=== PATIENT | male | born 2000 | race Caucasian/White ===

== ENCOUNTER 2019-01-26 16:51 | Emergency (ER) | payer MEDICAID, SELFPAY ==
[2019-01-26] VITALS (18 sets, daily range): BP systolic 104–159; BP diastolic 59–93; PULSE 63–90; RESP 11–25; TEMP 36.8; O2SAT 95–98
--- NOTE | 2019-01-26 17:18 | ED.GENADUL_ITS ---
Discharge Plan Disposition Patient Disposition: HOME Condition: Stable Discharge Details Chief Complaint: OD/Poison Clinical Impression: Opiate abuse, continuous Primary Care Provider: Smooth Brice ED Provider: Storm Florence Home Meds and New Rx's Prescriptions: No Action bupropion HCl [Wellbutrin XL] 150 MG tablet extended release 24 hr 150 mg PO DAILY Qty: 30 RF: 0 oxycodone-acetaminophen [Percocet] 10-325 mg Tablet 1 tab PO TID PRNRF: 0 Discharge Instructions Instructions: Narcotic Abuse (ED) Additional Instructions: Your seen today by recovery collector and provided follow-up opportunities please consider rehab medication therapy and counseling for your opiate addiction. You were provided a prescription for naloxone today should you or someone you know overdose on opiate this can be a life-saving medication as we reviewed. Please return to the emergency department if you develop respiratory distress or other concerns Referrals: Smooth Brice MD [Primary Care Provider] - Medical Decision Making 18-year-old male history of opiate abuse with reported lethargy and question of respiratory depression unseen after taking Percocet or an unknown opiate. Patient conscious alert and oriented in the emergency department with no evidence of respiratory depression moderate in the emergency department for 2 hours seen by recovery collector and offered resources and he will follow-up for the next few days patient provided with a prescription for naloxone and agrees to strict return to emergency department precautions. HPI 18-year-old male past medical history of snorting heroin taking Percocet reports that he took a friend's Percocet versus other unknown pill and then was reported to become sleepy and drowsy unclear if there wasany episode of apnea or respiratory arrest. Patient was not given naloxone prehospital according to patient and EMS . Patient history of opioid use denies IV drug abuse and is looking at rehab options possibly methadone and is interested in talking to [facility] patient no other complaints denies trauma no shortness of breath chest pain nausea vomiting diarrhea weight loss weight gain symptoms are acute nonradiating continuous General Date/Time Provider Initiated Documentation: 01/26/19 17:14 . Related Data Home Medications Medication Instructions Recorded Confirmed bupropion HCl [Wellbutrin Xl] 150 mg PO DAILY #30 tab-cap 01/26/18 01/26/19 oxycodone-acetaminophen [Percocet] 1 tab PO TID PRN 01/26/19 01/26/19 Previous Rx's Medication Instructions Recorded bupropion HCl [Wellbutrin Xl] 150 mg PO DAILY #30 tab-cap 01/26/18 Allergies Allergy/AdvReac Type Severity Reaction Status Date / Time No Known Allergies Allergy Unverified 12/15/17 13:41 General Stated Complaint: OD/Poison JOCELINE: 3 Review of Systems Review of Systems All systems reviewed & are unremarkable except as noted in HPI and below PFSH Medical History Marijuana abuse Tear of meniscus of left knee Surgical History Fracture, Open Treatment Hardware Removal Meniscectomy (06/29/16) Tonsillectomy and adenoidectomy Tonsillectomy and adenoidectomy Family History Mother Hyperlipidemia Father Essential hypertension Hyperlipidemia Neoplasm Social History Smoking/Tobacco Use Status: Never Alcohol Intake: current Alcohol Intake frequency: a few times a month Drug use: Never Substance use type: marijuana Details: 3.5 grams of marijuana a day. Snorts Heroine as well. Do you feel safe at home: Yes Do you feel safe in your relationship?: Yes Exam Narrative Exam Narrative: Pulse oximetry reviewed by me and is normal [] Constitutional: Pt is in no acute distress. he is well appearing. he oriented to person, place, and time. Eyes: conjunctivae are normal. Pupils are equal, round, and reactive to light. No scleral icterus. extraocular muscles are intact Ears/Nose/Mouth/Throat: mucus membranes are moist. Musculoskeletal: neck is supple. normal range of motion in all extremities. Cardiovascular: Normal rate and rhythm. No lower extremity edema [RRR] Respiratory: effort is normal . pt exhibits no stridor or respiratory distress. [L CTA] GastrointestinaI: abdomen soft, +BS, nontender, -rebound, -guarding. Neurological: alert and oriented to person, place, and time. he has normal strength, no tremor. Skin: Skin is warm and dry. he is not diaphoretic. Distal perfusion in tact, warm extremities, cap refill ? 2 seconds. Hem/Lymph/Imm: No cervical LAD, no goiter, no conjunctival pallor Psych: normal mood and affect. behavior is normal Triage and nurse notes reviewed.[] Course Vital Signs Temperature 36.8 C 01/26/19 16:52 Pulse 90 01/26/19 16:52 Respiratory Rate 18 01/26/19 16:52 Blood Pressure 159/93 H 01/26/19 16:52 Pulse Oximetry 96 01/26/19 16:52 Temperature 36.8 C 01/26/19 16:52 Temperature Source Temporal Artery Scan 01/26/19 16:52 Pulse 90 01/26/19 16:52 Respiratory Rate 12 01/26/19 16:58 Respiratory Effort 01/26/19 16:58 Respiratory Depth Normal 01/26/19 16:58 Respiratory Pattern Normal 01/26/19 16:58 Blood Pressure 159/93 H 01/26/19 16:52 Blood Pressure Position Sitting 01/26/19 16:52 Pulse Oximetry 96 01/26/19 16:52 Oxygen Delivery Method Room Air 01/26/19 16:52 Oxygen Flow Rate 0 01/26/19 16:52
== END 2019-01-26 18:31 | disposition home or self-care (01) ==
PROVIDERS: Emergency Provider Emergency Medicine; PCP Pediatrics
DX: T40.2X1A Poisoning by other opioids, accidental (unintentional), initial encounter (principal); F11.20 Opioid dependence, uncomplicated; R53.83 Other fatigue
CPT/HCPCS: 99284

== ENCOUNTER 2019-08-21 18:34 | Emergency (ER) | payer MEDICAID, SELFPAY ==
[2019-08-21 18:40] VITALS: BP 146/72; PULSE 93; RESP 16; TEMP 36; O2SAT 95
--- NOTE | 2019-08-21 18:45 | W.ED.GENAD ---
Discharge Plan Disposition Patient Disposition: HOME Condition: Good Discharge Details Chief Complaint: Nausea/Vomit/Diar Clinical Impression: Vomiting Primary Care Provider: Smooth Brice ED Provider: Linda Velazco Home Meds and New Rx's Prescriptions: New promethazine 25 mg tablet 25 mg PO Q6H PRN (Reason: nausea and vomiting) Qty: 10 RF: 0 Continued methadone 10 mg/mL Concentrate 85 mg PO DAILY RF: 0 Discharge Instructions Instructions: Acute Nausea and Vomiting (ED) Additional Instructions: Continue to encourage hydration. He may advance diet as tolerated. Acute increase in vomiting is likely associated with the food you had this morning. However, I am concerned that your weekly episodes of vomiting may be associated with your daily marijuana use. Please consider cutting back. Please discuss this further with your primary care. If you develop fever/chills, abdominal pain, inability stay hydrated or other new/worsening symptoms seek care urgently once again. If your nausea vomiting recurs, you may take the Phenergan as prescribed. Stand Alone Forms: Work Release Referrals: Smooth Brice MD [Primary Care Provider] - Medical Decision Making Patient 18-year-old male presented with acute emesis nausea and vomiting today. Denies any diarrhea. Reports began after eating a [employer] breakfast burrito. Since subsided and he is feeling improved. Endorses feeling hungry at this time and feels that he would be able to tolerate this well. Is currently drinking fluids. No previous abdominal surgeries. Denies of fevers or chills. Denies any back pain. No chest pain, shortness of breath. States he had 4 episodes of emesis but has been able to hydrate throughout the course of the day. No recent travel. No known sick contacts. Patient does report that he has had issues with vomiting historically that typically is alleviated with hot showers. Patient does smoke marijuana multiple times a day. Presents today as he had to miss work and is requesting work note. I did discuss cannabinoid use hyperemesis and advised that he try to cut back on his marijuana usage. However, today's episode may also have been linked to his unusual food intake this morning. On exam, patient is resting comfortably. He is no abdominal tenderness. Normal bowel sounds. He appears nontoxic. He appears well-hydrated. I feel it emergent intervention is warranted at this time particularly as he feels improved and is requesting food. Plan to p.o. challenge the patient. Patient is eating and drinking without any complaints. Will prescribe antiemetic in case symptoms come back. However, advised that he try to cut back on marijuana usage and follow-up closely with his primary care physician. Work note was given at patient's request. He was given return precautions. All his questions and concerns were addressed and is agreement this plan. HPI General Mode of arrival: ambulatory. Date/Time Provider Initiated Documentation: 08/21/19 18:45. Limitations to Documentation: no limitations. Information obtained by: patient and RN notes reviewed. HPI Narrative: Patient is a 18-year-old male with history of daily marijuana use, currently receiving daily methadone, with chief complaint of nausea vomiting. Reports that he had a burrito at [facility] this morning and since that time, has had 4 episodes of emesis. Denies any abdominal pain. Over, had noted some cramping earlier today. Is now drinking you tolerating this well. Has not had any nausea in the past few hours and feels overall improved. Reports that he did have to miss work secondary to his symptoms and is requesting a work note. Denies any fevers or chills. No diarrhea. No change in bowel habits. Denies any dysuria hematuria or other change in urinary habits. No hematemesis. No previous abdominal surgeries. Related Data Home Medications Medication Instructions Recorded Confirmed methadone 85 mg PO DAILY 08/21/19 08/21/19 promethazine 25 mg PO Q6H PRN #10 tab 08/21/19 Previous Rx's Medication Instructions Recorded promethazine 25 mg PO Q6H PRN #10 tab 08/21/19 Allergies Allergy/AdvReac Type Severity Reaction Status Date / Time No Known Allergies Allergy Unverified 08/21/19 18:42 General Stated Complaint: Nausea/Vomit/Diar JOCELINE: 3 Review of Systems Constitutional Constitutional: Reports as per HPI, Denies chills, Denies fatigue, Denies fever(s) and Denies headache(s) ENT Ears, Nose, Mouth, and Throat: Denies headache(s) Cardiovascular Cardiovascular: Reports as per HPI, Denies chest pain and Denies dyspnea Respiratory Respiratory: Reports as per HPI, Denies cough and Denies dyspnea Gastrointestinal Gastrointestinal: Reports as per HPI Genitourinary Genitourinary: Denies system reviewed and no additional complaints, except as docu (patient denies any change in urinary habits) Musculoskeletal Musculoskeletal: Reports as per HPI and Denies back pain Integumentary/Breasts Skin/Breast: Reports as per HPI and Denies rash Neurologic Neurologic: Reports as per HPI and Denies headache(s) Endocrine Endocrine: Denies fatigue [facility] Medical History Marijuana abuse [facility] [place] [facility] 11/05 Tear of meniscus of left knee Surgical History (Updated 07/04/18 @ 14:36 by Ofuz [place]) Fracture, Open Treatment ORIF triplane fracture left ankle done in 07/23/12; distal humerus fracture. Hardware Removal right elbow and left ankle on 12/03/12 Meniscectomy (06/29/16) partial meniscectomy, chondroplasty, microfracture r knee Tonsillectomy and adenoidectomy Tonsillectomy and adenoidectomy Family History Mother Hyperlipidemia Father Essential hypertension Hyperlipidemia Neoplasm Social History Smoking/Tobacco Use Status: Never Alcohol Intake: current Alcohol Intake frequency: a few times a month Drug use: Daily Substance use type: marijuana Details: 3.5 grams of marijuana a day. Snorts Heroine as well. s Do you feel safe at home: Yes Do you feel safe in your relationship?: Yes Exam Const General: cooperative, healthy appearing, comfortable, no acute distress and well developed Nutritional Appearance: average body habitus and well nourished Orientation: alert and awake [facility] Head: normal to inspection Mouth: moist mucous membranes Resp Effort & Inspection: normal respiratory effort, able to speak in complete sentences and no respiratory distress Auscultation: clear to auscultation bilaterally, no rales, no rhonchi and no wheezes Cardio Rate: regular rate Rhythm: regular rhythm Heart Sounds: S1 normal and S2 normal GI Inspection: normal to inspection, no edema and non-distended Palpation: soft, no hepatosplenomegaly, not firm, no guarding, no masses, not rigid and nontender Percussion: normal to percussion Auscultation: normal bowel sounds Back/Spine/Pelvis Back: no CVA tenderness Skin General skin exam: no rashes or lesions noted Trauma: no lacerations or abrasions Neuro General: alert and awake Cognition: normal cognition Speech: speech normal Gait: normal gait Psych Appearance: grossly normal and well kempt Mental Status: mental status grossly normal Speech and Movement: speech and movement normal Course Vital Signs Vital signs: Vital Signs Temperature 36 C L 08/21/19 18:40 Pulse 93 H 08/21/19 18:40 Respiratory Rate 16 08/21/19 18:40 Blood Pressure 146/72 H 08/21/19 18:40 Pulse Oximetry 95 08/21/19 18:40 Temperature 36 C L 08/21/19 18:40 Temperature Source Skin 08/21/19 18:40 Pulse 93 H 08/21/19 18:40 Respiratory Rate 16 08/21/19 18:40 Respiratory Effort Non-Labored 08/21/19 18:40 Blood Pressure 146/72 H 08/21/19 18:40 Blood Pressure Position Sitting 08/21/19 18:40 Pulse Oximetry 95 08/21/19 18:40 Oxygen Delivery Method Room Air 08/21/19 18:40 Oxygen Flow Rate 0 08/21/19 18:40 Pain Level 4 08/21/19 18:40
== END 2019-08-21 19:15 | disposition home or self-care (01) ==
PROVIDERS: Emergency Provider Physician Assistant; PCP Pediatrics
DX: R11.2 Nausea with vomiting, unspecified (principal); F12.10 Cannabis abuse, uncomplicated
CPT/HCPCS: 99283

== ENCOUNTER 2021-07-01 06:57 | Emergency (ER) | payer MEDICAID, SELFPAY ==
[2021-07-01 07:03] VITALS: BP 141/79; PULSE 50; TEMP 36.4; O2SAT 98
--- NOTE | 2021-07-01 07:07 | ED.GENADUL_ITS ---
Discharge Plan Disposition Patient Disposition: HOME Condition: Good Discharge Details Clinical Impression: Impetigo Primary Care Provider: Smooth Brice ED Provider: Aron Reich Home Meds and New Rx's Prescriptions: New mupirocin 2 % ointment 1 applic topical TID Qty: 15 RF: 0 cephalexin 250 mg tablet 250 mg PO QID 7 Days Qty: 28 RF: 0 Continued methadone 10 mg/mL Concentrate 85 mg PO DAILY RF: 0 promethazine 25 mg tablet 25 mg PO Q6H PRN (Reason: nausea and vomiting) Qty: 10 RF: 0 Discharge Instructions Instructions: Impetigo (ED) Additional Instructions: At this time you have a mild skin infection called impetigo which is a bacterial infection of your skin. Please apply the mupirocin ointment 3 times daily until your symptoms resolve. If you do not notice any improvement with the ointment after 2 to 3 days please start taking the oral antibiotic Keflex and. If you notice any worsening of your symptoms, or any new symptoms such as vomiting, diarrhea, fever, chills, shortness of breath, chest pain, numbness, weakness, or fainting , please return immediately to the emergency department for reevaluation. Please follow up with your primary care provider as soon as possible for reassessment and reevaluation. As always, it was a pleasure participating in your medical care today. Referrals: Smooth Brice MD [Primary Care Provider] - Medical Decision Making This is a pleasant 20-year-old male with a past medical history of impetigo who presents today for evaluation of rash on his left forehead. He was concerned it was shingles. He denies any burning or itching. He denies any fever or chills. No other complaints at this time. No history of trauma. Physical exam demonstrates 2 small erythematous lesions on the scalp, with a honey crusted scab over top. Symptoms consistent with mild impetigo. Clinically inconsistent with shingles. No current clinical evidence of staph scalded skin syndrome, erythema multiforme, erythema migrans, toxic epidermal necrolysis, Eddy-Blane syndrome, Kawasaki-like rash, meningococcemia, pemphigus vulgaris, or necrotizing fasciitis. We will give mupirocin ointment for home use, and a prescription for Keflex to use if the symptoms do not improve over 36 hours with the topical mupirocin. Discussed red flags which to return. I have extensively reviewed the treatment plan and discharge instructions with the patient. I have addressed all patient concerns at this time. The patient was made aware of what symptoms to monitor for that would warrant a return to the emergency department. Discussed the plan with the patient, they demonstrate verbal understanding and agreement with our assessment and plan at this time. The documentation in this chart was dictated using [employer] dictation software. Please excuse any dictation errors. HPI General Date/Time Provider Initiated Documentation: 07/01/21 07:07 . HPI Narrative: This is a pleasant 20-year-old male with a past medical history of impetigo who presents today for evaluation of rash on his left forehead. He was concerned it was shingles. He denies any burning or itching. He denies any fever or chills. No other complaints at this time. No history of trauma. Related Data Home Medications Medication Instructions Recorded Confirmed methadone 85 mg PO DAILY 08/21/19 07/01/21 promethazine 25 mg PO Q6H PRN #10 tab 08/21/19 cephalexin 250 mg PO QID 7 Days #28 tab 07/01/21 mupirocin 1 applic TOPICAL TID #15 g 07/01/21 Previous Rx's Medication Instructions Recorded promethazine 25 mg PO Q6H PRN #10 tab 08/21/19 cephalexin 250 mg PO QID 7 Days #28 tab 07/01/21 mupirocin 1 applic TOPICAL TID #15 g 07/01/21 Allergies Allergy/AdvReac Type Severity Reaction Status Date / Time No Known Allergies Allergy Unverified 07/01/21 07:07 General Stated Complaint: RashLesion JOCELINE: 4 Review of Systems All systems reviewed & are unremarkable except as noted in HPI and below [facility] Medical History Marijuana abuse [facility] [place] [facility] 11/05 Tear of meniscus of left knee Surgical History Fracture, Open Treatment ORIF triplane fracture left ankle done in 07/23/12; distal humerus fracture. Hardware Removal right elbow and left ankle on 12/03/12 Meniscectomy (06/29/16) partial meniscectomy, chondroplasty, microfracture r knee Tonsillectomy and adenoidectomy Tonsillectomy and adenoidectomy Family History Mother Hyperlipidemia Father Essential hypertension Hyperlipidemia Neoplasm Social History Smoking/Tobacco Use Status: Current every day Tobacco Type: cigarettes Smoking risk assessment performed?: Yes Alcohol Intake: current Alcohol Intake frequency: holidays/special occasions only Drug use: Current Sobriety Substance use type: marijuana Details: 3.5 grams of marijuana a day. s Do you feel safe at home: Yes Do you feel safe in your relationship?: Yes Exam Narrative Exam Narrative: 1.Const: Well-nourished, Well-developed, appearing stated age 2.Eyes: PERRL, no conjunctival injection, and symmetrical lids. 3.ENT: Atraumatic external nose and ears. Moist MM. Neck: Symmetric, trachea midline, No thyromegaly. 4.CVS: +S1/S2, No murmurs or gallops. Peripheral pulses 2+ and equal in all extremities. Brisk capillary refill in all extremities. 5.RESP: Unlabored respiratory effort. Clear to auscultation bilaterally. No wheezes rales or rhonchi 6.GI: Soft, Nontender/Nondistended, No hepatosplenomegaly. No guarding or rebound. 7.MSK: Normocephalic/Atraumatic, Extremities w/o deformity or ttp No cyanosis or clubbing, Normal movement of all extremities 8.Skin: Patient demonstrates 2 small lesions on the left frontal upper scalp, consistent with impetigo. Small amount of erythema surrounding them, with a honeydew crusted lesion over it. Negative Nikolsky sign. No large vesicles or bulla. No palpable purpura. No oral lesions. No mucosal lesions. No evidence of severe cellulitis. No evidence of vaccine preventable rash. 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 Sensation grossly intact, no focal neurologic deficits. 10.Psych: (AAO) x3. Appropriate mood and affect Course Vital Signs Vital signs: Vital Signs Temperature 36.4 C L 07/01/21 07:03 Pulse 50 L 07/01/21 07:03 Blood Pressure 141/79 H 07/01/21 07:03 Pulse Oximetry 98 07/01/21 07:03 Temperature 36.4 C L 07/01/21 07:03 Temperature Source Temporal Artery Scan 07/01/21 07:03 Pulse 50 L 07/01/21 07:03 Blood Pressure 141/79 H 07/01/21 07:03 Blood Pressure Position Sitting 07/01/21 07:03 Pulse Oximetry 98 07/01/21 07:03 Oxygen Delivery Method Room Air 07/01/21 07:03 Oxygen Flow Rate 0 07/01/21 07:03
== END 2021-07-01 07:20 | disposition home or self-care (01) ==
PROVIDERS: Emergency Provider Student in an Organized Health Care Education/Training Program; PCP Pediatrics
DX: L01.00 Impetigo, unspecified (principal); B96.89 Other specified bacterial agents as the cause of diseases classified elsewhere
CPT/HCPCS: 99283

== ENCOUNTER 2021-09-29 14:04 | Emergency (ER) | payer MEDICAID, SELFPAY ==
[2021-09-29 14:07] VITALS: BP 126/73; PULSE 52; RESP 14; TEMP 36.5; O2SAT 98
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
[2021-09-29] MEDS: Bacitracin 30 GM TUBE TP (15:38)
== END 2021-09-29 15:37 | disposition home or self-care (01) ==
PROVIDERS: Emergency Provider Student in an Organized Health Care Education/Training Program
DX: T20.22XA Burn of second degree of lip(s), initial encounter (principal); T20.26XA Burn of second degree of forehead and cheek, initial encounter; T20.27XA Burn of second degree of neck, initial encounter; T22.151A Burn of first degree of right shoulder, initial encounter; X12.XXXA Contact with other hot fluids, initial encounter; Y99.0 Civilian activity done for income or pay
CPT/HCPCS: 99282; 99283

== ENCOUNTER 2021-10-05 07:50 | Emergency (ER) | payer SELFPAY ==
[2021-10-05 07:55] VITALS: BP 133/94; PULSE 62; RESP 16; TEMP 36.3; O2SAT 100
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
== END 2021-10-05 08:21 | disposition home or self-care (01) ==
PROVIDERS: Emergency Provider Registered Nurse Emergency
DX: T20.2 Burn of second degree of head, face, and neck (principal); T20.26XD Burn of second degree of forehead and cheek, subsequent encounter; T20.27XD Burn of second degree of neck, subsequent encounter; T22.1 Burn of first degree of shoulder and upper limb, except wrist and hand; X12.XXXD Contact with other hot fluids, subsequent encounter; Y99.0 Civilian activity done for income or pay
CPT/HCPCS: 99281

== ENCOUNTER 2022-10-08 05:48 | Emergency (ER) | payer MEDICAID, SELFPAY ==
--- NOTE | 2022-10-08 05:53 | ED.GENADUL_ITS ---
Discharge Plan Disposition Patient Disposition: Home Condition: Stable Discharge Details Clinical Impression: Infected dental caries Primary Care Provider: Aron Ross ED Provider: Sarah Rowe Home Meds and New Rx's Prescriptions: New amoxicillin-pot clavulanate 875-125 mg tablet 1 tab PO BID 7 Days Qty: 14 0RF ibuprofen 600 mg tablet 600 mg PO Q6H PRNQty: 20 0RF Continued methadone 10 mg/mL Concentrate 115 mg PO DAILY Discharge Instructions Instructions: Dental Caries (ED) Additional Instructions: Drink plenty of fluids and get plenty of rest. Take Tylenol every 4 hours as needed and directed for pain. Do not take more than 3000 mg of Tylenol in 24 hours. Prescriptions for the antibiotic Augmentin and the pain reliever ibuprofen have been sent electronically to your pharmacy. Follow-up with your scheduled dentist appointment next week. Return immediately to the emergency department if you develop any worsening or new concerning symptoms. Discharge Data Discharge Date/Time-TO BE ENTERED AT DEPARTURE: 10/08/22 06:46 Discharge Physician: Sarah Rowe Medical Decision Making 22-year-old male on methadone presents for left lower dental pain for the past 3 weeks. Recently finished amoxicillin and Flagyl with temporary relief and then symptoms returned. Patient has dental caries and missing teeth. Tooth #19 or 20 has a portion missing on the posterior aspect and is tender to palpation with dental caries. There is no dental abscess noted. No drooling, trismus or submandibular swelling. Patient initially offered dental block and declined but then was agreeable. He was given a dose of ibuprofen and Augmentin here and prescriptio ns sent electronically to his pharmacy. Dental block performed at bedside with significant improvement of pain. Advised to follow-up with his scheduled appointment with Dr. Vital this week for dental extraction. Usual and customary return precautions given prior to discharge. Medical Records Medical records reviewed: Yes I reviewed the patient's medical records. HPI General Mode of arrival: ambulatory . Date/Time Provider Initiated Documentation: 10/08/22 05:53 . Limitations to Documentation: no limitations . Information obtained by: patient . HPI Narrative: Patient is a 22-year-old male who presents with left lower dental pain for the past 3 weeks. Patient states he saw his dentist Dr. Vital for this pain and was prescribed amoxicillin and Flagyl which he recently finished. He states it temporarily helped his symptoms but then pain returned after he finished the antibiotics. Patient states he has an appointment with Dr. Vital next week for dental extraction of this tooth. Patient denies any fever. Patient states he has been taking Tylenol without relief. Patient is on methadone. Patient states he has not taken any ibuprofen. Related Data Home Medications Medication Instructions Recorded Confirmed methadone 10 mg/mL oral concentrate 115 mg PO DAILY 08/21/19 10/08/22 amoxicillin 875 mg-potassium 1 tab PO BID 7 days #14 tabs 10/08/22 clavulanate 125 mg tablet ibuprofen 600 mg tablet 600 mg PO Q6H PRN #20 tabs 10/08/22 Previous Rx's Medication Instructions Recorded amoxicillin 875 mg-potassium 1 tab PO BID 7 days #14 tabs 10/08/22 clavulanate 125 mg tablet ibuprofen 600 mg tablet 600 mg PO Q6H PRN #20 tabs 10/08/22 Allergies Allergy/AdvReac Type Severity Reaction Status Date / Time No Known Allergies Allergy Unverified 10/08/22 05:57 General Stated Complaint: DentalOral JOCELINE: 5 Review of Systems All systems reviewed & are unremarkable except as noted in HPI and below Constitutional Constitutional: Reports as per HPI, Denies chills and Denies fever(s) Eyes Eyes: Denies blurry vision ENT Ears, Nose, Mouth, and Throat: Reports dental pain, Denies dizziness, Denies sore throat and Denies throat swelling Cardiovascular Cardiovascular: Denies chest pain and Denies dyspnea Respiratory Respiratory: Denies cough and Denies dyspnea Gastrointestinal Gastrointestinal: Denies abdominal pain, Denies diarrhea and Denies vomiting Genitourinary Genitourinary: Denies hematuria and Denies dysuria Musculoskeletal Musculoskeletal: Denies back pain and Denies numbness Integumentary/Breasts Skin/Breast: Denies lesions and Denies rash Neurologic Neurologic: Denies dizziness, Denies localized weakness and Denies numbness Allergic/Immunologic Allergic/Immunologic: Denies throat swelling PFSH All Active Problems (Updated 10/08/22 @ 06:07 by Sarah Rowe DO) Impetigo (Acute) Infected dental caries (Acute) Medical History Marijuana abuse [facility] 11/05 Tear of meniscus of left knee Surgical History Fracture, Open Treatment ORIF triplane fracture left ankle done in 07/23/12; distal humerus fracture. Hardware Removal right elbow and left ankle on 12/03/12 Meniscectomy (06/29/16) partial meniscectomy, chondroplasty, microfracture r knee Tonsillectomy and adenoidectomy Tonsillectomy and adenoidectomy Family History Mother Hyperlipidemia Father Essential hypertension Hyperlipidemia Neoplasm Social History Smoking/Tobacco Use Status: Current every day Tobacco Type: cigarettes Smoking risk assessment performed?: Yes Alcohol Intake: current Alcohol Intake frequency: holidays/special occasions only Drug use: Occasionally Substance use type: marijuana Do you feel safe at home: Yes Do you feel safe in your relationship?: Yes Exam Const General: cooperative, healthy appearing and no acute distress HENMT Head: normal to inspection Ears: hearing grossly normal bilaterally, external ears normal and TM's normal bilaterally General nose exam: external nose normal Face and sinus: normal facial exam Mouth: oral mucosae normal, no drooling and no trismus Teeth image: 1. Missing teeth. Tooth #19 or 20 is the location of pain. There is a chip to the posterior aspect of this tooth. There is dental caries throughout. Throat: posterior oropharynx normal Eyes General: appearance normal, both eyes and all related structures Neck Neck: normal visual inspection, no lymphadenopathy, no meningeal signs, trachea midline, supple, no anterior neck swelling and No submandibular swelling Resp Effort & Inspection: normal respiratory effort and able to speak in complete sentences Cardio Rate: regular rate Skin General skin exam: no rashes or lesions noted Neuro General: patient alert, patient awake and patient oriented x3 Motor: muscle tone normal throughout Extrem General: normal to inspection and full ROM Psych Appearance: grossly normal Affect: normal affect Procedures Nerve Block Nerve Block 1: Time out performed: Yes Local Anesthetic: Lidocaine 1% and Bupivicaine 0.5% Amount of anesthesia used (mL): 3 Side: left Intraoral Nerve Block: inferior alveolar Procedure Successful: Yes Patient Tolerated Procedure: well Complications: bleeding (minimal, at site, ~ 0.3cc)
[2022-10-08 05:54] VITALS: BP 175/108; PULSE 63; RESP 16; TEMP 37; O2SAT 100
[2022-10-08] MEDS: Amoxicillin 875/Clav. 125 TAB PO (06:12)
[2022-10-08] MEDS: Ibuprofen 600 MG TAB PO (06:12)
[2022-10-08 06:47] VITALS: BP 151/106
== END 2022-10-08 06:46 | disposition home or self-care (01) ==
PROVIDERS: Emergency Provider Physician Assistant; PCP Pediatrics
DX: K04.7 Periapical abscess without sinus (principal); K02.9 Dental caries, unspecified
CPT/HCPCS: 64400

== ENCOUNTER 2023-03-05 13:03 | Emergency (ER) | payer MEDICAID, SELFPAY ==
[2023-03-05 13:07] VITALS: BP 194/114; PULSE 88; RESP 24; TEMP 36.9; O2SAT 98
[2023-03-05 13:48] VITALS: RESP 16
[2023-03-05 13:57] LABS: Abs Immature Grans 0.03 10^3/uL (0.0-0.06); Absolute Basophil Count 0.04 10^3/uL (0.0-0.2); Absolute Eosinophil Count 0.05 10^3/uL (0.0-0.7); Absolute Lymphocyte Count 1.83 10^3/uL (1.2-3.4); Absolute Monocyte Count 0.67 10^3/uL (0.1-0.8); Absolute Neutrophil Count 6.93 10^3/uL (1.2-6.7); Basophils % 0.4; Eosinophils % 0.5; HCT 47.6 % (40.0-50.0); HGB 16.4 g/dL (13.5-17.5); Immature Grans % 0.3; Lymphocytes % 19.2; MCH 29.8 pg (27.0-33.0); MCHC 34.5 % (32.0-36.0); MCV 87 fL (80-95); MPV 9.3 fL (8.0-11.0); Neutrophils % 72.6; Platelet Count 223 10^3/uL (130-400); RDW 12.8 % (11.8-14.1); WBC 9.55 10^3/uL (4.4-10.8)
[2023-03-05 14:21] LABS: Bilirubin Small (Negative); Blood Negative (Negative); Clarity Sl Cloudy (Clear); Glucose Negative (Negative); Ketones 40 mg/dL (Negative); Leukocyte Esterase Negative (Negative); Nitrite Negative (Negative); Specific Gravity 1.025 (1.005-1.025)
[2023-03-05 14:21] LABS: ALT 38 U/L (16-63); AST 42 U/L (15-37); Albumin 4.7 g/dL (3.4-5.0); Alkaline Phosphatase 83 U/L (46-116); Anion Gap 13.6 mmol/L (3-11); BUN 16 mg/dL (7-18); CO2 27.4 mmol/L (21.0-32.0); CREATININE 1.2 mg/dL (0.70-1.30); Calcium 9.4 mg/dL (8.5-10.1); Chloride 102 mmol/L (98-107); Estimated GFR 87.15 (mL/min/1.73m2); Glucose 96 mg/dL (74-106); Potassium 3.4 mmol/L (3.5-5.1); Sodium 143 mmol/L (136-145); TSH (W/Ref FT4) 0.91 uIU/mL (0.36-3.74); Total Protein 8.3 g/dL (6.4-8.2)
[2023-03-05 14:22] LABS: ETHANOL BLOOD < 3.0 mg/dL (<10)
[2023-03-05 14:24] VITALS: BP 155/101; PULSE 68; RESP 18; O2SAT 99
[2023-03-05 14:29] LABS: Bacteria Negative HPF (Negative); C & S Indicated? No; Casts Negative LPF (Negative); Crystals Negative HPF (Negative); Epithelial Cells Rare HPF (Negative); Mucus Trace (Negative); RBC 0-2 HPF (0-2)
[2023-03-05 14:33] LABS: Salicylate 3.4 mg/dL (<2.8)
[2023-03-05 14:34] LABS: Acetaminophen < 2 ug/mL (10-30)
[2023-03-05 14:34] LABS: *AMPHETAMINES SCREEN URINE Positive (Negative); *BARBITURATES SCREEN URINE Negative (Negative); *BENZODIAZEPINES SCREEN URINE Negative (Negative); Cannabinoids THC Positive (Negative); Cocaine Screen,Urine Positive (Negative); METHADONE URINE SCREEN Positive (Negative); OPIATES URINE SCREEN Negative (Negative)
[2023-03-05] MEDS: POTASSIUM CHLORIDE 20 MEQ, POTASSIUM CHLORIDE 10 MEQ 30 MEQ PO (14:35)
[2023-03-05 14:36] LABS: Tricyclic Antidepressants Negative (Negative)
--- NOTE | 2023-03-05 15:02 | W.ED.GENAD ---
Discharge Plan Discharge Details Chief Complaint: AMS/LOC Primary Care Provider: Unknown,Unknown ED Provider: Gian Shepard Home Meds and New Rx's Prescriptions: No Action methadone 10 mg/mL Concentrate 125 mg PO DAILY ibuprofen 600 mg tablet 600 mg PO Q6H PRNQty: 20 0RF Medical Decision Making Patient presenting to the emergency department for chief complaint of general malaise. Patient states that he was on a diaz and had some psychotic episode last night due to doing meth for 4 days and had not slept until last night. He states he did make some suicidal statements yesterday while he was under the influence but states today he is not suicidal homicidal and is here due to family bring him in given the concern of drug abuse. Physical exam is unremarkable. Patient is hypertensive on arrival. Slightly anxious so we will continue to monitor blood pressure. Review of CBC is overall nondiagnostic nonemergent, CMP does show slightly low potassium at 3.4 which we will orally replete, anion gap is elevated at 13.6 ALT AST slightly elevated at 42 and high total protein. Did offer patient IV fluids which he refused at this time and states he will orally hydrate which I do feel is appropriate. Urinalysis also does show protein and ketones otherwise nondiagnostic. UDS is positive for methadone which patient is prescribed, amphetamines cocaine and THC. Patient is not intoxicated. Will have disaster recovery specialist and mental health evaluate patient for any further assistance. life skills coach was able to come and speak with patient. Patient signed out pending mental health evaluation Lab Data Lab results reviewed: Yes I reviewed the patient's lab results. HPI General Mode of arrival: ambulatory. Date/Time Provider Initiated Documentation: 03/05/23 13:37. Limitations to Documentation: no limitations. Information obtained by: patient and RN notes reviewed. 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 Rest improves symptom(s), Other factors that worsen symptoms (Drug abuse) . Patient notes no other symptoms.. Patient did receive the following treatments prior to arrival, none Related Data Home Medications Medication Instructions Recorded Confirmed methadone 10 mg/mL oral concentrate 125 mg PO DAILY 08/21/19 03/05/23 ibuprofen 600 mg tablet 600 mg PO Q6H PRN #20 tabs 10/08/22 03/05/23 Previous Rx's Medication Instructions Recorded ibuprofen 600 mg tablet 600 mg PO Q6H PRN #20 tabs 10/08/22 Allergies Allergy/AdvReac Type Severity Reaction Status Date / Time No Known Allergies Allergy Unverified 03/05/23 13:16 General Stated Complaint: AMS/LOC JOCELINE: 3 Review of Systems Constitutional Constitutional: Denies chills, Denies fatigue, Denies fever(s), Denies headache(s) and Reports malaise ENT Ears, Nose, Mouth, and Throat: Denies headache(s) Cardiovascular Cardiovascular: Denies chest pain, Denies syncope, Denies rapid heart rate and Denies dyspnea Respiratory Respiratory: Denies cough and Denies dyspnea Gastrointestinal Gastrointestinal: Denies abdominal pain and Denies vomiting Musculoskeletal Musculoskeletal: Denies myalgias Integumentary/Breasts Skin/Breast: Denies erythema and Denies rash Neurologic Neurologic: Reports behavioral changes, Denies confusion, Denies syncope, Denies headache(s) and Denies memory loss Psychiatric Psychiatric: Reports as per HPI, Reports anxiety, Reports behavioral changes, Denies confusion, Denies memory loss, Reports mood swings, Denies visual hallucinations, Denies hallucinations, Denies homicidal ideation and Denies suicidal ideation Endocrine Endocrine: Denies fatigue PFSH All Active Problems Impetigo (Acute) Medical History Marijuana abuse [facility] rehab 11/05 Tear of meniscus of left knee Surgical History Fracture, Open Treatment ORIF triplane fracture left ankle done in 07/23/12; distal humerus fracture. Hardware Removal right elbow and left ankle on 12/03/12 Meniscectomy (06/29/16) partial meniscectomy, chondroplasty, microfracture r knee Tonsillectomy and adenoidectomy Tonsillectomy and adenoidectomy Family History Mother Hyperlipidemia Father Essential hypertension Hyperlipidemia Neoplasm Social History (Reviewed 03/05/23 @ 15:07 by LISS Sr Smoking/Tobacco Use Status: Current every day Tobacco Type: cigarettes Smoking risk assessment performed?: Yes Alcohol Intake: current Alcohol Intake frequency: holidays/special occasions only Drug use: Occasionally Substance use type: marijuana and methamphetamine Do you feel safe at home: Yes Do you feel safe in your relationship?: Yes Exam Const General: cooperative Orientation: alert, awake and oriented x3 Limitations: mental status not altered HENMT Head: normal to inspection, normocephalic and atraumatic Ears: hearing grossly normal bilaterally Mouth: moist mucous membranes Eyes General: appearance normal, both eyes and all related structures Pupils: PERRL EOM: EOM intact bilaterally Resp Effort & Inspection: normal respiratory effort, able to speak in complete sentences and no respiratory distress Auscultation: clear to auscultation bilaterally Cardio Rate: regular rate and not tachycardic Rhythm: regular rhythm Heart Sounds: S1 normal, S2 normal, no click, no gallops, no murmurs and no rubs Neuro General: patient alert, patient awake, patient oriented x3, gait normal, moves all extremities and no focal motor deficits Cognition: normal cognition Speech: speech normal Psych Speech and Movement: speech and movement normal and speech clear Attitude: cooperative Thought Process: normal Thought Content: normal, no homicidality and suicidality Course Vital Signs Vital signs: Vital Signs Temperature 36.9 C 03/05/23 13:07 Pulse 88 03/05/23 13:07 Respiratory Rate 24 03/05/23 13:07 Blood Pressure 194/114 H 03/05/23 13:07 Pulse Oximetry 98 03/05/23 13:07 Temperature 36.9 C 03/05/23 13:07 Temperature Source Oral 03/05/23 13:07 Pulse 68 03/05/23 14:24 Respiratory Rate 18 03/05/23 14:24 Respiratory Effort Normal 03/05/23 13:48 Respiratory Depth Normal 03/05/23 13:48 Blood Pressure 155/101 H 03/05/23 14:24 Blood Pressure Position Sitting 03/05/23 13:07 Pulse Oximetry 99 03/05/23 14:24 Oxygen Delivery Method Room Air 03/05/23 14:24 Oxygen Flow Rate 0 03/05/23 14:24 Pain Level 0 03/05/23 13:07 Lab/Test Results Lab/Test Results: Laboratory Tests Range/Units 03/05/23 03/05/23 03/05/23 13:48 13:48 13:48 WBC (4.4-10.8) 10^3/uL 9.55 RBC (4.36-5.78) 10^6/uL 5.50 Hgb (13.5-17.5) g/dL 16.4 Hct (40.0-50.0) % 47.6 MCV (80-95) fL 87 MCH (27.0-33.0) pg 29.8 MCHC (32.0-36.0) % 34.5 RDW (11.8-14.1) % 12.8 Plt Count (130-400) 10^3/uL 223 MPV (8.0-11.0) fL 9.3 Immature Gran % 0.3 Neutrophils % 72.6 Lymphocytes % 19.2 Monocytes % 7.0 Eosinophils % 0.5 Basophils % 0.4 Nucleated RBC % (0.0-0.3) % 0.0 Absolute Neutrophils (1.2-6.7) 10^3/uL 6.93 H Absolute Lymphocytes (1.2-3.4) 10^3/uL 1.83 Absolute Monocytes (0.1-0.8) 10^3/uL 0.67 Absolute Eosinophils (0.0-0.7) 10^3/uL 0.05 Absolute Basophils (0.0-0.2) 10^3/uL 0.04 Sodium (136-145) mmol/L 143 Potassium (3.5-5.1) mmol/L 3.4 L Chloride (98-107) mmol/L 102 Carbon Dioxide (21.0-32.0) mmol/L 27.4 Anion Gap (3-11) mmol/L 13.6 H BUN (7-18) mg/dL 16 Creatinine (0.70-1.30) mg/dL 1.2 Est GFR (CKD-EPI 2020) (mL/min/1.73m2) 87.15 Glucose (74-106) mg/dL 96 Calcium (8.5-10.1) mg/dL 9.4 Total Bilirubin (0.2-1.0) mg/dL 1.0 AST (15-37) U/L 42 H ALT (16-63) U/L 38 Alkaline Phosphatase (46-116) U/L 83 Total Protein (6.4-8.2) g/dL 8.3 H Albumin (3.4-5.0) g/dL 4.7 TSH (0.36-3.74) uIU/mL 0.91 Urine Color (Yellow) Urine Clarity (Clear) Urine pH (5-8) Ur Specific [place] (1.005-1.025) Urine Protein (Negative) mg/dL Urine Ketones (Negative) mg/dL Urine Blood (Negative) Urine Nitrite (Negative) Urine Bilirubin (Negative) Urine Urobilinogen (Up to 0.2) mg/dL Ur Leukocyte Esterase (Negative) Urine RBC (0-2) HPF Urine WBC (0-5) HPF Ur Epithelial Cells (Negative) HPF Urine Crystals (Negative) HPF Urine Bacteria (Negative) HPF Urine Casts (Negative) LPF Urine Mucus (Negative) Ur Culture Indicated? Urine Glucose (Negative) mg/dL Salicylates (<2.8) mg/dL 3.4 Urine Opiates Screen (Negative) Urine Methadone Screen (Negative) Acetaminophen (10-30) ug/mL < 2 Ur Barbiturates Screen (Negative) Ur Tricyclics Screen (Negative) Ur Amphetamines Screen (Negative) U Benzodiazepines Scrn (Negative) Urine Cocaine Screen (Negative) Ur THC Screen (Negative) Ethyl Alcohol (<10) mg/dL < 3.0 Range/Units 03/05/23 03/05/23 14:10 14:10 WBC (4.4-10.8) 10^3/uL RBC (4.36-5.78) 10^6/uL Hgb (13.5-17.5) g/dL Hct (40.0-50.0) % MCV (80-95) fL MCH (27.0-33.0) pg MCHC (32.0-36.0) % RDW (11.8-14.1) % Plt Count (130-400) 10^3/uL MPV (8.0-11.0) fL Immature Gran % Neutrophils % Lymphocytes % Monocytes % Eosinophils % Basophils % Nucleated RBC % (0.0-0.3) % Absolute Neutrophils (1.2-6.7) 10^3/uL Absolute Lymphocytes (1.2-3.4) 10^3/uL Absolute Monocytes (0.1-0.8) 10^3/uL Absolute Eosinophils (0.0-0.7) 10^3/uL Absolute Basophils (0.0-0.2) 10^3/uL Sodium (136-145) mmol/L Potassium (3.5-5.1) mmol/L Chloride (98-107) mmol/L Carbon Dioxide (21.0-32.0) mmol/L Anion Gap (3-11) mmol/L BUN (7-18) mg/dL Creatinine (0.70-1.30) mg/dL Est GFR (CKD-EPI 2020) (mL/min/1.73m2) Glucose (74-106) mg/dL Calcium (8.5-10.1) mg/dL Total Bilirubin (0.2-1.0) mg/dL AST (15-37) U/L ALT (16-63) U/L Alkaline Phosphatase (46-116) U/L Total Protein (6.4-8.2) g/dL Albumin (3.4-5.0) g/dL TSH (0.36-3.74) uIU/mL Urine Color (Yellow) Yellow Urine Clarity (Clear) Sl Cloudy Urine pH (5-8) 6.0 Ur Specific [place] (1.005-1.025) 1.025 Urine Protein (Negative) mg/dL 100 H Urine Ketones (Negative) mg/dL 40 H Urine Blood (Negative) Negative Urine Nitrite (Negative) Negative Urine Bilirubin (Negative) Small H Urine Urobilinogen (Up to 0.2) mg/dL 2.0 H Ur Leukocyte Esterase (Negative) Negative Urine RBC (0-2) HPF 0-2 Urine WBC (0-5) HPF 3-5 Ur Epithelial Cells (Negative) HPF Rare Urine Crystals (Negative) HPF Negative Urine Bacteria (Negative) HPF Negative Urine Casts (Negative) LPF Negative Urine Mucus (Negative) Trace Ur Culture Indicated? No Urine Glucose (Negative) mg/dL Negative Salicylates (<2.8) mg/dL Urine Opiates Screen (Negative) Negative Urine Methadone Screen (Negative) Positive A Acetaminophen (10-30) ug/mL Ur Barbiturates Screen (Negative) Negative Ur Tricyclics Screen (Negative) Negative Ur Amphetamines Screen (Negative) Positive A U Benzodiazepines Scrn (Negative) Negative Urine Cocaine Screen (Negative) Positive A Ur THC Screen (Negative) Positive A Ethyl Alcohol (<10) mg/dL Sign Out Sign Out Data: Sign Out Comment: Patient signed out pending psychiatric assessment Last updated by Gian Shepard NP at 03/05/23 15:34
--- NOTE | 2023-03-05 20:37 | PDOC.MHCN_ITS ---
Date of service: 03/05/23 Time of Service: 20:37 PHQ-9 Over the last 2 weeks, how often have you been bothered by any of the following problems? 1. Little interest or pleasure in doing things: not at all 2. Feeling down, depressed, or hopeless: nearly every day 3. Trouble falling or staying asleep, or sleeping too much: not at all 4. Feeling tired or having little energy: nearly every day 5. Poor appetite or overeating: more than half the days 6. Feeling bad about yourself - or that you are a failure or have let yourself and your family down: nearly every day 7. Trouble concentrating on things, such as reading the newspaper or watching television: nearly every day 8. Moving or speaking so slowly that other people could have noticed? - Or the opposite - being so fidgety or restless that you have been moving around a lot more than usual: nearly every day 9. Thoughts that you would be better off or of hurting yourself in some way: more than half the days Total score: 19 Source: Developed by Drs. Jasbir Pinto, Bette Sweet, Bravo Tucker and colleagues, with an educational becki from [employer]. Suicide Severity Rate CSSRS Have you wished you were or wished you could go to sleep and not wake up?: Yes Have you actually had any thoughts of killing yourself?: Yes CSSRS2 Have you been thinking about how you might do this?: No Have you had these thoughts and had some intention of acting on them?: Yes Have you started to work out or worked out the details of how to kill yourself? Do you intend to carry out this plan?: Yes CSSRS3 Have you ever done anything, started to do anything or prepared to do anything to end your life?: No CSSRS4 Was this within the past three months?: No Screening Score Total Score: 4 Screening: Positive Mental Health Emergency Note Release [facility] release signed:: Yes Reason for Visit Client arrived via his family after his sister reported that he was willing to accept treatment for co occurring. Once medically cleared [facility] requested an evaluation. In the last 2 weeks has the pt presented for ES prior to today?: Unknown Client Information Client is: New Well Housed: Yes Non Suicidal Self Injury Current: No History: No Safety Risk/Harm to Self or Others Current Ideation to Harm Self or Others: No Risk: Does risk to harm exist?: No Risk: Low Risk Duty to warn indicated: No Asssessment/Mental Status Appearance: Disheveled Attitude: Cooperative Behavior: Unremarkable Speech: Soft Affect: Normal Mood: Depressed Thought process: Goal directed Hallucinations: No Delusions: No Attention: Unremarkable Perception: Not impaired Orientation: Fully orientated Memory: Intact Insight: Good Judgement: Good Neurovegetative Symptoms Sleep: Decrease Appetitie: Decrease Interests: Decrease Energy: No change Libido: Not applicable Substance Use: Drug Issues: Other (Client reported history of use of Cocaine and heroin. He in the last 4 days per his report he was feeling lonely with his girlfriend being on vacation that he used Meth and realizes now that was a bad decision. ) Do you use nicotine?: Yes Have you used substances in the last 7 days?: yes, See above Additional Issues: Assaultive/Threatening Behavior: No Medical Concerns: No Client engaged in active self harm w/weapon: No Threatening to run away: No Child reported abuse/neglect: No Voluntarily presenting for services: Yes Domestic violence is a concern: No Extreme Psychosis or extreme behavior is present: No Impression Client is a 22 year old single, male who is currently staying with his father in [place]. He presents as soft spoken, sitting on his bed and his father has recently left his bedside. The client showed good insight and judgment at the time of his assessment. He endorsed poor sleep and appetite as well as interest which suggest a diagnosis of depression. He has had a history of therapy however, does not feel that has been helpful for him in the past. The client reported not having an interest in treatment at this time so a proactive safety plan was completed. Client was counseled on the dangers of using substances and how this could affect his future. At some point during the assessment the father left however, after completing the assessment the father came back in requesting to speak to this clinician and his nurse and the attending also arrived. The father shared his worry based on his daughters phone call with him and asked if his son could be held involuntarily. The process of an involuntary hold was explained to the father and that at this time the client does not meet criteria for an involuntary hold. It was recommended that the client follow up with [facility] for treatment options tomorrow. Resources Reosjuan reviewed and given:: 988 and [facility] Plan/Disposition Recommended Disposition: PCP/Office visit. Plan: The client was made aware of [facility] as well as 988 during this assessment. He has already met with [facility] and plans to follow up with them on 03.06.2023 per his report. He will continue to see his provider at [facility]. Person reported agreement to plan: Yes Reports/communication Outcome discussed with: ED/Personnel
== END 2023-03-05 18:09 | disposition home or self-care (01) ==
PROVIDERS: Nurse Practitioner Family; Emergency Provider Physician Assistant
DX: F15.10 Other stimulant abuse, uncomplicated (principal)
CPT/HCPCS: 36415; 80053; 80307; 99283; 80320; 80329; 81003; 81015; 84443; 85025

== ENCOUNTER 2023-05-18 08:38 | Emergency (ER) | payer MEDICAID, SELFPAY ==
[2023-05-18 08:41] VITALS: BP 137/95; PULSE 95; RESP 18; TEMP 36.8; O2SAT 99
--- NOTE | 2023-05-18 09:00 | ED.GENADUL_ITS ---
Discharge Plan Disposition Patient Disposition: Transfer-Acute Inpatient Care Specific Acute Inpt Facility: [facility] Discharge Details Clinical Impression: Laceration of wrist, Flexor tendon laceration of right wrist with open wound Primary Care Provider: Unknown,Unknown ED Provider: Nam Live Home Meds and New Rx's Prescriptions: No Action methadone 10 mg/mL Concentrate 125 mg PO DAILY ibuprofen 600 mg tablet 600 mg PO Q6H PRNQty: 20 0RF Discharge Data Discharge Date/Time-TO BE ENTERED AT DEPARTURE: 05/18/23 10:07 Medical Decision Making <Nam Live MD - Last Filed: 05/18/23 09:19> 22-year-old male sustained deep laceration to left wrist after punching a glass window out of frustration, pulsatile bleeding on arrival, tourniquet applied with cessation of bleeding, 5 cm gaping laceration with exposed muscle belly and flexor tendons visible, patient hemodynamically stable heart rate 95, blood pressure 140/30, afebrile, saturating normally on room air, airway breathing intact, faint/minimal left radial pulse; GCS 15; patient given 25 fentanyl IV for pain control, lidocaine with epinephrine injected superficially over the wrist wound, 3-0 Prolene simple erupted sutures thrown over wound to attempt to tamponade bleeding, will attempt to take down tourniquet. Stat consultation with trauma/orthopedic team at [facility] has been initiated for transfer as patient has likely arterial injury as well as multiple flexor tendons injured 9: 16 improved hemostasis after superficial sutures applied, tourniquet taken down at 915, patient not saturating through dressings; sensation remains intact, poorly palpable radial pulse, decreased cap refill and cool fingers; case discussed with trauma surgeon Dr. Santiago who has accepted patient for transfer as trauma alert. We are currently arranging medic transport at this time. P atient stable and consenting to transfer. HPI <Nam Live MD - Last Filed: 05/18/23 09:19> General Date/Time Provider Initiated Documentation: 05/18/23 08:50 . HPI Narrative: 22-year-old male presents after punching a glass window sustaining deep lace ration to left wrist Related Data Home Medications Medication Instructions Recorded Confirmed methadone 10 mg/mL oral concentrate 125 mg PO DAILY 08/21/19 05/18/23 ibuprofen 600 mg tablet 600 mg PO Q6H PRN #20 tabs 10/08/22 05/18/23 Previous Rx's Medication Instructions Recorded ibuprofen 600 mg tablet 600 mg PO Q6H PRN #20 tabs 10/08/22 Allergies Allergy/AdvReac Type Severity Reaction Status Date / Time No Known Allergies Allergy Unverified 05/18/23 09:30 General Stated Complaint: Laceration JOCELINE: 3 Review of Systems <Nam Live MD - Last Filed: 05/18/23 09:19> Narrative: Review of Systems Constitutional: negative Eyes: negative ENT: negative Cardiovascular: negative Respiratory: negative Gastrointestinal: negative : negative Musculoskeletal: negative Skin: Wrist laceration Neurologic: negative Psych: negative PFSH <Nam Live MD - Last Filed: 05/18/23 09:19> All Active Problems (Updated 05/20/23 @ 18:22 by Poncho Orozco MD) Impetigo (Acute) Laceration of wrist (Acute) Flexor tendon laceration of right wrist with open wound (Acute) Medical History Marijuana abuse [facility] rehab 11/05 Tear of meniscus of left knee Surgical History Fracture, Open Treatment ORIF triplane fracture left ankle done in 07/23/12; distal humerus fracture. Hardware Removal right elbow and left ankle on 12/03/12 Meniscectomy (06/29/16) partial meniscectomy, chondroplasty, microfracture r knee Tonsillectomy and adenoidectomy Tonsillectomy and adenoidectomy Family History Mother Hyperlipidemia Father Essential hypertension Hyperlipidemia Neoplasm Social History Smoking/Tobacco Use Status: Current every day Tobacco Type: cigarettes Smoking risk assessment performed?: Yes Alcohol Intake: current Alcohol Intake frequency: holidays/special occasions only Drug use: Current Sobriety Substance use type: marijuana and methamphetamine Housing: apartment Do you feel safe at home: Yes Do you feel safe in your relationship?: Yes Exam <Nam Live MD - Last Filed: 05/18/23 09:19> Narrative Exam Narrative: Physical Examination General: alert, awake, cooperative, comfortable appearing HEENT: normocephalic, atraumatic; PERRL, EOM intact, conjunctiva normal; no nasal discharge; moist mucous membranes, oral and pharyngeal mucosa normal, tolerating secretions Neck: supple, trachea midline; full ROM Chest: normal to inspection Respiratory: normal respiratory effort, speaking in full sentences, clear to auscultation, no wheezing, rales or rhonchi Cardiac: regular rate, regular rhythm, S1S2 intact, no murmurs rubs or gallops GI: abdomen soft, non-tender, non-distended; no palpable mass or hepatosplenomegaly Skin: See extremity Neuro: AAOx3, normal speech, moving all extremities Extremities: 5 cm deep laceration to radial aspect of left wrist volar, pulsatile bleeding, exposed muscle belly and flexor tendons; distal and proximal flexion of all fingers intact, extension of fingers intact, sensation median radial and ulnar nerve distribution intact, patient unable to fully flex wrist, no appreciable foreign bodies Psych: Appropriate mood and affect Course <Nam Live MD - Last Filed: 05/18/23 09:19> Vital Signs Vital signs: Vital Signs Pulse 95 H 05/18/23 08:41 Respiratory Rate 18 05/18/23 08:41 Pulse Oximetry 99 05/18/23 08:41 Temperature Source Oral 05/18/23 08:41 Pulse 95 H 05/18/23 08:41 Respiratory Rate 18 05/18/23 08:41 Blood Pressure Position Sitting 05/18/23 08:41 Pulse Oximetry 99 05/18/23 08:41 Oxygen Delivery Method Room Air 05/18/23 08:41 Oxygen Flow Rate 0 05/18/23 08:41 <Poncho Orozco MD - Last Filed: 05/20/23 18:22> Laceration Laceration 1: Site: upper extremity Side (If applicable): left Size (cm): 5 Description: linear Depth: simple, single layer Local Anesthetic: Lidocaine 1% and with Epi Amount of anesthesia used (mL): 5 Pre-repair: wound explored Skin layer closed with: nylon Size (cm): 3-0 Number of sutures: 3 Technique: simple, interrupted (BLEEDING CONTROLLED WITH SUTURE AND PRESSURE DRESSING ) <Poncho Orozco MD - Last Filed: 05/20/23 18:22> Critical Care Time Critical Care Time: Yes Total Critical Care Time: 45 Attestation: I spent greater than 45 minutes addressing this patient's immediate life threats. Please see MDM section of note. This time was spent engaged in work directly related to the patient's care, exclusive of separate procedures, and failure to initiate these interventions would have likely resulted in clinically significant or life threatening deterioration in the patient's condition.
[2023-05-18] MEDS: ceFAZolin 1 GM/50 ML BAG IVPB (09:12)
[2023-05-18] MEDS: fentaNYL 100 MCG/2 ML VIAL (09:15)
[2023-05-18 09:28] LABS: PTT Activated 27.9 sec (21.5-31.9); Prothrombin Time 10.4 sec (9.3-11.0)
[2023-05-18 09:28] LABS: ALT 23 U/L (16-63); AST 30 U/L (15-37); Albumin 3.7 g/dL (3.4-5.0); Alkaline Phosphatase 77 U/L (46-116); Anion Gap 10.6 mmol/L (3-11); BUN 8 mg/dL (7-18); Bilirubin, Total 0.4 mg/dL (0.2-1.0); CO2 28.4 mmol/L (21.0-32.0); Calcium 8.8 mg/dL (8.5-10.1); Chloride 104 mmol/L (98-107); Estimated GFR 108.46 (mL/min/1.73m2); Glucose 84 mg/dL (74-106); Potassium 4.7 mmol/L (3.5-5.1); Sodium 143 mmol/L (136-145); Total Protein 7.2 g/dL (6.4-8.2)
--- NOTE | 2023-05-18 09:28 | DI.RAD_ITS ---
Exam(s) XR WRIST LT COMPLETE EXAM: XR WRIST LT COMPLETE CLINICAL HISTORY: deep lac. TECHNIQUE: 2D digital imaging was performed of the left wrist. Three images were obtained. PA, obl ique and lateral views were obtained. COMPARISON: CR RIGHT LITTLE FINGER from 10/08/2012 FINDINGS: BONES: There is a faint lucency seen on the portal pole oblique view overlying the distal cortex of t he distal radius suspicious for fracture. On the lateral view there also appears to be a lucency at t he anterior aspect of the distal radial cortex. No bony destructive lesion is seen. JOINTS: The carpal bones are normally aligned. SOFT TISSUE: Soft tissue laceration along the volar aspect of the forearm. No radiopaque foreign bodi es are identified. IMPRESSION: 1. Findings suspicious for nondisplaced intra-articular fracture of the distal left radius. CT scan o f the wrist may be obtained for further evaluation. 2. Findings were discussed with Dr. Live at 9:50 a.m. on 05/18/2023. DATA REPOSITORY: RADIATION DOSE DELIVERED:
--- NOTE | 2023-05-18 09:34 | NUR.NOTE ---
Nursing Note: this RN gave Patient and girlfriend monomer recovery operator information along with harm reduction bag to take home
--- NOTE | 2023-05-18 09:42 | NUR.NOTE ---
Nursing Note: 0910 provider dressed and placed temp sutures to left forearm, brought down tourniquet at that time
[2023-05-18 09:44] VITALS: BP 137/82; PULSE 56; RESP 16; O2SAT 97
--- NOTE | 2023-05-18 10:48 | NUR.NOTE ---
Nursing Note:1045 this RN gave report to ED ,RN at [facility] [place]
== END 2023-05-18 10:07 | disposition short-term general hospital (02) ==
PROVIDERS: Emergency Provider Emergency Medicine
DX: S66.921A Laceration of unspecified muscle, fascia and tendon at wrist and hand level, right hand, initial encounter (principal); S61.511A Laceration without foreign body of right wrist, initial encounter; W25.XXXA Contact with sharp glass, initial encounter
CPT/HCPCS: 12002; 80053; 86850; 86900; 86901; 90471; 96365; 99291; 73110; 85025; 85610; 85730; J0690; J3010

== ENCOUNTER 2024-05-02 16:51 | Emergency (ER) | payer MEDICAID, SELFPAY ==
[2024-05-02 16:53] VITALS: BP 143/96; PULSE 91; RESP 16; TEMP 36.1; O2SAT 98
--- NOTE | 2024-05-02 17:00 | DI.RAD_ITS ---
Exam(s) XR TIB/FIB LT EXAM: XR TIB/FIB LT CLINICAL HISTORY: dog bite. TECHNIQUE: 2D digital imaging was performed. COMPARISON: CR XR TIB/FIB RT from 05/02/2024 FINDINGS: Views-AP and lateral No evidence acute fracture osteophytic density is noted on the lateral view above the fibular head po sterior to the tibial plateau at this level. This is not have the appearance of a typical acute frac ture fragment but correlation with site of tenderness is recommended. There is no radiopaque foreign body evident. No gas in the soft tissues. Incidentally noted is longitudinally orientated calcification within the Achilles tendon. This usual ly associated with chronic Achilles tendinitis/tendinosis. IMPRESSION: Findings as above which are probably incidental and unrelated to the acute injury here DATA REPOSITORY: RADIATION DOSE DELIVERED:
--- NOTE | 2024-05-02 17:00 | DI.RAD_ITS ---
Exam(s) XR TIB/FIB RT EXAM: XR TIB/FIB RT CLINICAL HISTORY: dog bite. TECHNIQUE: 2D digital imaging was performed. COMPARISON: No exams were available for comparison FINDINGS: Two views-AP and lateral No evidence of fracture. No radiopaque foreign body. Do not density normal. No osseous lesions nor erosions. No evidence of osteomyelitis. IMPRESSION: No significant osseous findings in the right tibia-fibula. DATA REPOSITORY: RADIATION DOSE DELIVERED:
[2024-05-02 17:15] VITALS: BP 166/80; PULSE 88; RESP 20; O2SAT 98
[2024-05-02] MEDS: Acetaminophen 500 MG TAB 1000 MG PO (17:45)
[2024-05-02] MEDS: Rabies Immune Globulin 1,500 UNIT/5 ML VIAL 1687.36 UNITS IM (17:46)
[2024-05-02] MEDS: Rabies vaccine (PCEC)/PF 2.5 UNITS/ML VIAL IM (17:46)
[2024-05-02] MEDS: Amoxicillin 875/Clav. 125 TAB PO (17:46)
[2024-05-02] MEDS: Ketorolac 10 MG TAB PO (17:46)
--- NOTE | 2024-05-02 19:54 | ED.GENADUL_ITS ---
Discharge Plan Disposition Patient Disposition: Home Condition: Stable Discharge Details Clinical Impression: Dog bite Primary Care Provider: Jasbir Tran ED Provider: Sangita Gan Home Meds and New Rx's Prescriptions: New amoxicillin-pot clavulanate 875-125 mg tablet 1 tab PO BID 7 Days Qty: 14 0RF No Action methadone 10 mg/mL Concentrate 125 mg PO DAILY ibuprofen 600 mg tablet 600 mg PO Q6H PRNQty: 20 0RF Discharge Instructions Instructions: Animal Bites ED Additional Instructions: * keep wounds clean with soap and water * allow to drain * return with worsening pain, redness, foul smelling drainage * start antibiotic twice daily for 7 days * you will need to return for continuation of rabies vaccine series RABIES VACCINE DOSES Day 0: 05/02 given in ED Day 3: Saturday 05/05 > come to ED for this shot Day 7: 05/09 > will be done through the [facility] emergency department center Day 14: 05/16 > will be done through the [facility] HPI General Date/Time Provider Initiated Documentation: 05/02/24 17:04 . Limitations to Documentation: physical limitation . Information obtained by: patient . HPI Narrative: 23-year-old gentleman with past medical history of polysubstance and opiate use disorder presents for evaluation of dog bite. Reports that some people that he may or may not know had a pitbull that bit him on the leg. He does not know anything else about this dog. The patient reports pain in bilateral calfs. He is able to walk. Did have recent tetanus injection. Related Data Home Medications ?Medication ?Instructions ?Recorded ?Confirmed methadone 10 mg/mL oral concentrate 125 mg PO DAILY 08/21/19 05/02/24 ibuprofen 600 mg tablet 600 mg PO Q6H PRN #20 tabs 10/08/22 05/02/24 amoxicillin 875 mg-potassium 1 tab PO BID 7 days #14 tabs 05/02/24 clavulanate 125 mg tablet Previous Rx's ?Medication ?Instructions ?Recorded ibuprofen 600 mg tablet 600 mg PO Q6H PRN #20 tabs 10/08/22 amoxicillin 875 mg-potassium 1 tab PO BID 7 days #14 tabs 05/02/24 clavulanate 125 mg tablet Allergies Allergy/AdvReac Type Severity Reaction Status Date / Time No Known Allergies Allergy Unverified 05/18/23 09:30 General Stated Complaint: AnimalBite JOCELINE: 3 Exam Narrative Exam Narrative: Review of Systems: All systems reviewed & are unremarkable except as noted in HPI and below Well-developed, appears uncomfortable NCAT PERRL, normal conjunctiva RRR Unlabored respiratory effort Bilateral calves with 1 cm wounds actively bleeding. The wounds are located on the left medial calf and the right lateral calf Course Vital Signs Vital signs: Vital Signs Temperature 36.1 C L 05/02/24 16:53 Pulse 91 H 05/02/24 16:53 Respiratory Rate 16 05/02/24 16:53 Blood Pressure 143/96 H 05/02/24 16:53 Pulse Oximetry 98 05/02/24 16:53 Temperature 36.1 C L 05/02/24 16:53 Temperature Source Skin 05/02/24 16:53 Pulse 88 05/02/24 17:15 Respiratory Rate 20 05/02/24 17:15 Respiratory Effort Normal, Non-Labored 05/02/24 17:06 Blood Pressure 166/80 H 05/02/24 17:15 Blood Pressure Position Sitting 05/02/24 16:53 Pulse Oximetry 98 05/02/24 17:15 Oxygen Delivery Method Room Air 05/02/24 17:15 Oxygen Flow Rate 0 05/02/24 16:53 Pain Level 7 05/02/24 18:17 Medical Decision Making Emergent evaluation of dog bite. Dog's vaccination status is unknown, and the patient does not know these people or is not able to provide us with any information regarding that. The wounds are small and interesting location. Unclear how these wounds without any other corresponding injuries were obtained. X-rays were obtained to evaluate for fracture or foreign body and none was noted. Wounds were thoroughly irrigated, given their length it is best to leave it open and have wound healed with secondary intention. Tetanus is up-to-date. Rabies was given due to the unknown status of the dog and the patient was provided with antibiotics. First dose given in the emergency department patient understands to return for rabies series on Monday and the remaining doses can be given in the infusion center. Quality:SDOH Health Related Social Needs: No Data to Display PFSH All Active Problems Dog bite (Acute) Impetigo (Acute) Medical History Tear of meniscus of left knee Marijuana abuse [facility] 11/05 Surgical History Tonsillectomy and adenoidectomy Tonsillectomy and adenoidectomy Meniscectomy (06/29/16) partial meniscectomy, chondroplasty, microfracture r knee Hardware Removal right elbow and left ankle on 12/03/12 Fracture, Open Treatment ORIF triplane fracture left ankle done in 07/23/12; distal humerus fracture. Family History Mother Hyperlipidemia Father Essential hypertension Hyperlipidemia Neoplasm Social History Smoking/Tobacco Use Status: Current every day Tobacco Type: cigarettes Smoking risk assessment performed?: Yes Alcohol Intake: former Drug use: Occasionally Substance use type: marijuana, crack/cocaine and methamphetamine Housing: apartment Do you feel safe at home: Yes Do you feel safe in your relationship?: Yes
== END 2024-05-02 18:42 | disposition home or self-care (01) ==
PROVIDERS: Emergency Provider Emergency Medicine; PCP Internal Medicine
DX: S81.851D Open bite, right lower leg, subsequent encounter (principal); S81.852D Open bite, left lower leg, subsequent encounter; W54.0XXD Bitten by dog, subsequent encounter; Z23 Encounter for immunization
CPT/HCPCS: 90375; 90471; 96372; 99284; 73590; 90675

== ENCOUNTER 2024-05-05 14:57 | Emergency (ER) | payer MEDICAID, SELFPAY ==
[2024-05-05 15:03] VITALS: BP 143/96; PULSE 96; RESP 15; TEMP 36.4; O2SAT 98
--- NOTE | 2024-05-05 15:22 | ED.GENADUL_ITS ---
Discharge Plan Disposition Patient Disposition: Home Condition: Stable Discharge Details Clinical Impression: Encounter for repeat administration of rabies vaccination, Dog bite Primary Care Provider: Jasbir Tran ED Provider: Nhung Morel Home Meds and New Rx's Prescriptions: No Action methadone 10 mg/mL Concentrate 125 mg PO DAILY amoxicillin-pot clavulanate 875-125 mg tablet 1 tab PO BID 7 Days Qty: 14 0RF ibuprofen 600 mg tablet 600 mg PO Q6H PRNQty: 20 0RF Discharge Instructions Instructions: Rabies Vaccine CDC Vaccine Information Statement (VIS) Additional Instructions: You were seen in the emergency department today for the second dose of your rabies vaccine. You are healing well, and should continue to take all of the antibiotics that were prescribed to you until they are gone, even if you start to feel better. You will go to the infusion center for the next 2 d.ses, Day 7: 05/09 > will be done through the infusion center Day 14: 05/16 > will be done through the infusion center Please follow-up with your primary care provider with any concerns, or return to the emergency department if you develop fever chills, shortness of breath, chest pain, change in mentation, or any other symptoms that cause you concern. Thank you for allowing us to be part of your care. HPI General Mode of arrival: ambulatory . Date/Time Provider Initiated Documentation: 05/05/24 15:01 . Limitations to Documentation: no limitations . Information obtained by: patient . HPI Narrative: MDM: In brief, this is a 23-year-old male patient presenting for his second rabies series after a dog bite 3 days ago. The patient is currently well, with no concerns about his wound healing, taking all medications as prescribed. My differential includes but is not limited to typical wound healing, typical course of postexposure prophylaxis for rabies. I see no evidence of cellulitis, abscess, and the patient is reassuringly hemodynamically appropriate with no evidence of sepsis, bacteremia. I do not see any indication at this time based on my history and physical examination to proceed with laboratory studies or advanced imaging. ED Course: Second rabies vaccine was given without incident, patient counseled to continue his Augmentin as prescribed, follow-up with his primary care provider with any concerns, she will return to the infusion center for day 7 and day 14 injections as noted below. Day 7: 05/09 > will be done through the infusion center Day 14: 05/16 > will be done through the infusion center At this time, the patient has had a full medical evaluation and is safe for discharge to home. They are hemodynamically stable, ambulatory, and tolerating PO. They are understanding of the follow-up plan and return precautions. They left our facility without incident. Nhung Morel MD HPI: This is a 23-year-old male patient presenting for day 3 of rabies postexposure prophylaxis. The patient was bitten by a dog 3 days ago, does not know anything about the dog, has never been vaccinated for rabies in the past. Received immunoglobulin and his first rabies vaccine and was started on Augmentin for bacterial prophylaxis. The patient reports that he has been doing well, his wound seems to be healing, and he has been taking all medications as prescribed. He has not noted any fevers or chills, change in mentation, or other acute complaints. He has no concerns regarding today's injection, and understands that he will follow-up with the infusion center on day 7 and day 14. Exam: Gen: Awake and alert, in no apparent distress HEENT: Non-icteric sclera Neck: Supple Lungs: No apparent respiratory distress, normal respiratory effort. CV: Appears well perfused Abdomen: Non-distended MSK: Moves 4 extremities without apparent limitation in ROM Skin: Visualized skin without rashes, cyanosis. The patient's 2 puncture wounds on his bilateral calves are well-healing, the right calf has no surrounding redness, induration, or discharge. The left calf has a very small area of redness but no significant cellulitic changes, no fluctuance, no drainage. Neuro: Normal Gait, no obvious focal deficits or facial asymmetry. Speaks in full, clear sentences. Psych: Appropriate for situation. Related Data Home Medications ?Medication ?Instructions ?Recorded ?Confirmed methadone 10 mg/mL oral concentrate 125 mg PO DAILY 08/21/19 05/02/24 ibuprofen 600 mg tablet 600 mg PO Q6H PRN #20 tabs 10/08/22 05/02/24 amoxicillin 875 mg-potassium 1 tab PO BID 7 days #14 tabs 05/02/24 clavulanate 125 mg tablet Previous Rx's ?Medication ?Instructions ?Recorded ibuprofen 600 mg tablet 600 mg PO Q6H PRN #20 tabs 10/08/22 amoxicillin 875 mg-potassium 1 tab PO BID 7 days #14 tabs 05/02/24 clavulanate 125 mg tablet Allergies Allergy/AdvReac Type Severity Reaction Status Date / Time No Known Allergies Allergy Unverified 05/18/23 09:30 General Stated Complaint: Recheck JOCELINE: 5 Course Vital Signs Vital signs: Vital Signs Temperature 36.4 C 05/05/24 15:03 Pulse 96 H 05/05/24 15:03 Respiratory Rate 15 05/05/24 15:03 Blood Pressure 143/96 H 05/05/24 15:03 Pulse Oximetry 98 05/05/24 15:03 Temperature 36.4 C 05/05/24 15:03 Temperature Source Tympanic 05/05/24 15:03 Pulse 96 H 05/05/24 15:03 Respiratory Rate 15 05/05/24 15:03 Respiratory Effort Normal 05/05/24 15:06 Blood Pressure 143/96 H 05/05/24 15:03 Blood Pressure Position Sitting 05/05/24 15:03 Pulse Oximetry 98 05/05/24 15:03 Oxygen Delivery Method Room Air 05/05/24 15:03 Oxygen Flow Rate 0 05/05/24 15:03 Pain Level 4 05/05/24 15:03 Medical Decision Making Quality:SDOH Health Related Social Needs: No Data to Display PFSH All Active Problems (Updated 05/05/24 @ 15:36 by Nhung Morel MD) Encounter for repeat administration of rabies vaccination (Acute) Dog bite (Acute) Impetigo (Acute) Medical History Tear of meniscus of left knee Marijuana abuse [facility] 11/05 Surgical History Tonsillectomy and adenoidectomy Tonsillectomy and adenoidectomy Meniscectomy (06/29/16) partial meniscectomy, chondroplasty, microfracture r knee Hardware Removal right elbow and left ankle on 12/03/12 Fracture, Open Treatment ORIF triplane fracture left ankle done in 07/23/12; distal humerus fracture. Family History Mother Hyperlipidemia Father Essential hypertension Hyperlipidemia Neoplasm Social History Smoking/Tobacco Use Status: Current every day Tobacco Type: cigarettes Smoking risk assessment performed?: Yes Alcohol Intake: former Drug use: Occasionally Substance use type: marijuana, crack/cocaine and methamphetamine Housing: apartment Do you feel safe at home: Yes Do you feel safe in your relationship?: Yes
[2024-05-05] MEDS: Rabies vaccine (PCEC)/PF 2.5 UNITS/ML VIAL IM (15:34)
--- NOTE | 2024-05-05 15:43 | NUR.NOTE ---
Addendum entered by Rachel Fortune 05/05/24 15:46: day 14: 05/16/24. They will contact patient for time. Original Note: Faxed to Infusion, the orders for rabies vaccination per Dr. Gan. He is to go to Infusion for day 7 05/09/24 and day 14 05/16/Nursing Note:
[2024-05-05 16:00] VITALS: BP 143/96; PULSE 96; RESP 15; TEMP 36.4; O2SAT 98
== END 2024-05-05 16:00 | disposition home or self-care (01) ==
PROVIDERS: Emergency Provider Emergency Medicine; PCP Internal Medicine
DX: W54.0XXD Bitten by dog, subsequent encounter; S81.831A Puncture wound without foreign body, right lower leg, initial encounter; S81.832A Puncture wound without foreign body, left lower leg, initial encounter; Z23 Encounter for immunization
CPT/HCPCS: 90471; 99284; 90675; 99282

== ENCOUNTER 2025-05-02 21:25 | Outpatient (REF) | payer BC, SELFPAY ==
[2025-05-02 16:28] LABS: MRSA PCR Negative (Negative)
== END 2025-05-02 21:26 | disposition home or self-care (01) ==
LOC: LBN 21:25
PROVIDERS: PCP Nurse Practitioner Family; Visit Provider Nurse Practitioner Family
DX: L01.00 Impetigo, unspecified (principal)
CPT/HCPCS: 87641

== ENCOUNTER 2025-06-15 13:10 | Emergency (ER) | payer BC, SELFPAY ==
[2025-06-15 13:15] VITALS: BP 129/89; PULSE 89; RESP 16; TEMP 36.3; O2SAT 96
--- NOTE | 2025-06-15 13:27 | W.ED.GENAD ---
Discharge Plan Disposition Patient Disposition: Home Condition: Stable Discharge Details Clinical Impression: Infected dog bite Primary Care Provider: Unknown,Unknown ED Provider: Aron Peoples Home Meds and New Rx's Prescriptions: New sulfamethoxazole-trimethoprim 800-160 mg tablet 1 tab PO BID 10 Days Qty: 20 0RF mupirocin [Centany] 2 % ointment 1 applic topical BID Qty: 15 0RF Continued mupirocin 2 % ointment 1 applic topical BID Qty: 15 0RF Rx Instructions: apply twice daily for 7 days methadone 10 mg/mL Concentrate 140 mg PO DAILY Patient Comments: self reported, not verified by ERIC 06/15 ibuprofen 600 mg tablet 600 mg PO Q6H PRNQty: 20 0RF Discharge Instructions Instructions: Sulfamethoxazole and Trimethoprim, Mupirocin, Animal Bites ED Additional Instructions: You were seen in the emergency department for your residual lingering mild infection of a healing dog bite to your left knee/popliteal fossa. He finished the whole course of antibiotics today it is reasonable to try an antibiotic to cover some different bacteria so I sent a prescription to [facility] down the [place] and also sent a prescription strength topical antibiotic, please perform hot compresses as we discussed and perform general wound care. Please return for any red streaking up the leg increasing swelling, redness or fever. Discharge Data Discharge Date/Time-TO BE ENTERED AT DEPARTURE: 06/15/25 13:44 HPI General Date/Time Provider Initiated Documentation: 06/15/25 13:18. HPI Narrative: 24 year-old male presents to ED today by POV/ambulating with a chief complaint of healing dog bite in left calf- still having some weeping with onset 1.5 weeks ago- got vaccines and antibiotics after- seen last night and had POCUS with no drainable abscess. Quality described as feels a lot better than it did- occasional throbbing, no radiation to redness spreading up the leg, fever, nausea, tachycardia, endorses some hardness to touch. Severity is described as moderate. Palliating factors include took all his antibiotics. Provoking factors include nothing specific. Patient not anticoagulated. Related Data Home Medications ?Medication ?Instructions ?Recorded ?Confirmed methadone 10 mg/mL oral concentrate 140 mg PO DAILY 08/21/19 06/15/25 ibuprofen 600 mg tablet 600 mg PO Q6H PRN #20 tabs 10/08/22 06/15/25 mupirocin 2 % topical ointment 1 applic topical BID #15 grams 05/02/25 06/15/25 mupirocin 2 % topical ointment 1 applic topical BID #15 grams 06/15/25 (Centany) sulfamethoxazole 800 1 tab PO BID 10 days #20 tabs 06/15/25 mg-trimethoprim 160 mg tablet Previous Rx's ?Medication ?Instructions ?Recorded ibuprofen 600 mg tablet 600 mg PO Q6H PRN #20 tabs 10/08/22 mupirocin 2 % topical ointment 1 applic topical BID #15 grams 05/02/25 mupirocin 2 % topical ointment 1 applic topical BID #15 grams 06/15/25 (Centany) sulfamethoxazole 800 1 tab PO BID 10 days #20 tabs 06/15/25 mg-trimethoprim 160 mg tablet Allergies Allergy/AdvReac Type Severity Reaction Status Date / Time No Known Allergies Allergy Unverified 06/15/25 13:16 General Stated Complaint: Cellulitis JOCELINE: 3 Review of Systems All systems reviewed & are unremarkable except as noted in HPI and below Exam Narrative Exam Narrative: GENERAL APPEARANCE: Well-nourished, non-toxic, awake and alert, atraumatic, no acute distress. SKIN: Warm, pink, dry, mildly erythematous and indurated area about 2 x 1 cm to the left calf with no evidence of active drainage of purulent material, no lymphadenitis, neurovascularly intact distal HEAD: Normocephalic, atraumatic, normal hair distribution for gender/age. EYES: Normal conjunctiva, no exudates on lids/lashes. ENT: Nares patent, no circumoral cyanosis, no facial swelling NECK: Supple, trachea midline, painless cervical ROM. LUNGS/CHEST: Non-labored respirations, normal A/P diameter, symmetrical expansion, no chest wall deformity HEART (CV/PV): No peripheral edema, no JVD. ABDOMEN: Soft, non-distended, no guarding. MSK: Normal ROM, no swelling/deformity to bilateral UEs or LEs, moving all extremities without weakness, no cyanosis, spine midline without tenderness, normal curvature. NEURO: Mental Status AAOx4 - alert to person, place, time, events No facial droop, no forehead involvement. Motor: No focal weakness - strength 5/5 in bilateral UEs and LEs, proximal and distal, symmetric. Sensory: sensation intact to light touch globally. Gait normal: patient ambulated without ataxia into ED room. PSYCH: euthymic, cooperative, pleasant, appropriate speech Course Vital Signs Vital signs: Vital Signs Temperature 36.3 C L 06/15/25 13:15 Pulse 89 06/15/25 13:15 Respiratory Rate 16 06/15/25 13:15 Blood Pressure 129/89 06/15/25 13:15 Pulse Oximetry 96 06/15/25 13:15 Temperature 36.3 C L 06/15/25 13:15 Temperature Source Oral 06/15/25 13:15 Pulse 89 06/15/25 13:15 Respiratory Rate 16 06/15/25 13:15 Blood Pressure 129/89 06/15/25 13:15 Blood Pressure Position Sitting 06/15/25 13:15 Pulse Oximetry 96 06/15/25 13:15 Oxygen Delivery Method Room Air 06/15/25 13:15 Oxygen Flow Rate 0 06/15/25 13:15 Pain Level 6 06/15/25 13:15 Medical Decision Making This dictation utilizes [id number] dictation software and may contain unedited grammatical errors. 24 year-old male presents to ED today by POV/ambulating with a chief complaint of healing dog bite in left calf- still having some weeping with onset 1.5 weeks ago- got vaccines and antibiotics after- seen last night and had POCUS with no drainable abscess. Quality described as feels a lot better than it did- occasional throbbing, no radiation to redness spreading up the leg, fever, nausea, tachycardia, endorses some hardness to touch. Severity is described as moderate. Palliating factors include took all his antibiotics. Provoking factors include nothing specific. Patients' medical history: Noncontributory. Family and social history: Noncontributory. Pertinent exam findings / vital signs include mildly erythematous and indurated area about 2 x 1 cm to the left calf with no evidence of active drainage of purulent material, no lymphadenitis, neurovascularly intact distal. Differential / pathologies of concern include lingering cellulitis from his initial dog bite, unlikely sepsis. Diagnostic studies of: - None, patient had POCUS last night at another facility Interventions of: -Rx for Bactrim and mupirocin. ED Course/Assessment/Plan: 24-year-old male has a dog bite to left calf area that is lingering remaining red and indurated with some occasional weeping, he finished the whole course of Augmentin it is reasonable to start him on Bactrim and mupirocin for possible other bacterial coverage, I stressed strict return criteria for any signs of worsening infection. Findings not consistent with sepsis, abscess. Disposition of infected dog bite. Patient verbalized understanding of the plan and return to ED criteria and engaged in shared decision making. Medical Records Medical records reviewed: Yes I reviewed the patient's medical records. [facility] All Active Problems (Updated 06/15/25 @ 13:41 by TRACY Zavala) Infected dog bite (Acute) Impetigo (Acute) Medical History Tear of meniscus of left knee Marijuana abuse [facility] 11/05 Surgical History Tonsillectomy and adenoidectomy Tonsillectomy and adenoidectomy Meniscectomy (06/29/16) partial meniscectomy, chondroplasty, microfracture r knee Hardware Removal right elbow and left ankle on 12/03/12 Fracture, Open Treatment ORIF triplane fracture left ankle done in 07/23/12; distal humerus fracture. Family History Mother Hyperlipidemia Father Essential hypertension Hyperlipidemia Neoplasm Social History Smoking/Tobacco Use Status: Current every day Tobacco Type: cigarettes Smoking risk assessment performed?: Yes Alcohol Intake: former Drug use: Occasionally Substance use type: marijuana, crack/cocaine and methamphetamine Housing: apartment Do you feel safe at home: Yes Do you feel safe in your relationship?: Yes
== END 2025-06-15 13:44 | disposition home or self-care (01) ==
LOC: ER 13:47
PROVIDERS: Emergency Provider Physician Assistant
DX: W54.0XXA Bitten by dog, initial encounter; L08.89 Other specified local infections of the skin and subcutaneous tissue
CPT/HCPCS: 99283

== ENCOUNTER 2025-06-28 11:50 | Emergency (ER) | payer BC, SELFPAY ==
[2025-06-28 11:54] VITALS: BP 146/92; PULSE 104; RESP 16; TEMP 36.9; O2SAT 95
--- NOTE | 2025-06-28 15:41 | W.ED.GENAD ---
Discharge Plan Disposition Patient Disposition: Home Discharge Details Clinical Impression: Infected dog bite Primary Care Provider: Unknown,Unknown ED Provider: Ina Thurston Home Meds and New Rx's Prescriptions: New metronidazole 500 mg tablet 500 mg PO Q8H Qty: 30 0RF sulfamethoxazole-trimethoprim [Bactrim DS] 800-160 mg tablet 1 tab PO BID Qty: 20 0RF Continued mupirocin 2 % ointment 1 applic topical BID Qty: 15 0RF Rx Instructions: apply twice daily for 7 days methadone 10 mg/mL Concentrate 140 mg PO DAILY Patient Comments: self reported, not verified by [facility] 06/15 ibuprofen 600 mg tablet 600 mg PO Q6H PRNQty: 20 0RF mupirocin [Centany] 2 % ointment 1 applic topical BID Qty: 15 0RF Discharge Instructions Additional Instructions: Take both antibiotics as prescribed, apply warm compresses frequently Recheck in 72 hours Return with spreading redness, fever, worsening pain Discharge Data Discharge Date/Time-TO BE ENTERED AT DEPARTURE: 06/28/25 12:29 HPI General Date/Time Provider Initiated Documentation: 06/28/25 12:05. HPI Narrative: This 24-year-old male presents with report of dog bite left posterior leg which occurred 3 weeks ago. He states he completed a course of antibiotics and was reassessed on 15 June and placed on Bactrim however he only took 1 dose before misplacing the antibiotics. He states has been persistently draining is not quite as red but it still is painful and he is work requesting reassessment. Denies any fever or chills. Denies any chest pain or shortness of breath. Related Data Home Medications ?Medication ?Instructions ?Recorded ?Confirmed methadone 10 mg/mL oral concentrate 140 mg PO DAILY 08/21/19 06/28/25 ibuprofen 600 mg tablet 600 mg PO Q6H PRN #20 tabs 10/08/22 06/28/25 mupirocin 2 % topical ointment 1 applic topical BID #15 grams 05/02/25 06/28/25 mupirocin 2 % topical ointment 1 applic topical BID #15 grams 06/15/25 06/28/25 (Centany) metronidazole 500 mg tablet 500 mg PO Q8H #30 tabs 06/28/25 sulfamethoxazole 800 1 tab PO BID #20 tabs 06/28/25 mg-trimethoprim 160 mg tablet (Bactrim DS) Previous Rx's ?Medication ?Instructions ?Recorded ibuprofen 600 mg tablet 600 mg PO Q6H PRN #20 tabs 10/08/22 mupirocin 2 % topical ointment 1 applic topical BID #15 grams 05/02/25 mupirocin 2 % topical ointment 1 applic topical BID #15 grams 06/15/25 (Centany) metronidazole 500 mg tablet 500 mg PO Q8H #30 tabs 06/28/25 sulfamethoxazole 800 1 tab PO BID #20 tabs 06/28/25 mg-trimethoprim 160 mg tablet (Bactrim DS) Allergies Allergy/AdvReac Type Severity Reaction Status Date / Time No Known Allergies Allergy Unverified 06/28/25 12:00 General Stated Complaint: RX Refill JOCELINE: 5 Exam Narrative Exam Narrative: Popliteal region medially has area of redness and drainage, no obvious fluctuance no lymphangitis mild surrounding cellulitis approximately 2 inches, neurovascularly intact no calf swelling or tenderness distal pulses intact Course Vital Signs Vital signs: Vital Signs Temperature 36.9 C 06/28/25 11:54 Pulse 104 H 06/28/25 11:54 Respiratory Rate 16 06/28/25 11:54 Blood Pressure 146/92 H 06/28/25 11:54 Pulse Oximetry 95 06/28/25 11:54 Temperature 36.9 C 06/28/25 11:54 Temperature Source Oral 06/28/25 11:54 Pulse 104 H 06/28/25 11:54 Respiratory Rate 16 06/28/25 11:54 Blood Pressure 146/92 H 06/28/25 11:54 Blood Pressure Position Sitting 06/28/25 11:54 Pulse Oximetry 95 06/28/25 11:54 Oxygen Delivery Method Room Air 06/28/25 11:54 Oxygen Flow Rate 0 06/28/25 11:54 Pain Level 0 06/28/25 12:28 Medical Decision Making Assessment and plan: Patient was placed on Bactrim and Flagyl to cover Pasteurella. Warm compresses encouraged recheck in 48 to 72 hours. Return precautions reviewed and patient expressed understanding, suspect cellulitis versus developing abscess/phlegmon. No signs of systemic illness PFSH All Active Problems (Updated 06/28/25 @ 12:22 by TRACY Liriano) Infected dog bite (Acute) Impetigo (Acute) Medical History Tear of meniscus of left knee Marijuana abuse [facility] 11/05 Surgical History Tonsillectomy and adenoidectomy Tonsillectomy and adenoidectomy Meniscectomy (06/29/16) partial meniscectomy, chondroplasty, microfracture r knee Hardware Removal right elbow and left ankle on 12/03/12 Fracture, Open Treatment ORIF triplane fracture left ankle done in 07/23/12; distal humerus fracture. Family History Mother Hyperlipidemia Father Essential hypertension Hyperlipidemia Neoplasm Social History Smoking/Tobacco Use Status: Current every day Tobacco Type: cigarettes Smoking risk assessment performed?: Yes Alcohol Intake: former Drug use: Never Substance use type: former substance user, marijuana, crack/cocaine and methamphetamine Housing: apartment Do you feel safe at home: Yes Do you feel safe in your relationship?: Yes
== END 2025-06-28 12:29 | disposition home or self-care (01) ==
PROVIDERS: Emergency Provider Physician Assistant
DX: L08.89 Other specified local infections of the skin and subcutaneous tissue (principal); W54.0XXD Bitten by dog, subsequent encounter
CPT/HCPCS: 99283 ×2